=== PATIENT | female | born 1965 | race Two or more races ===

== ENCOUNTER 2021-04-05 21:39 | Emergency (ER) | payer OTHER ==
[2021-04-05 21:55] VITALS: BP 141/81; PULSE 60; TEMP 98.2; BMI 21.7
[2021-04-05 23:03] LABS: ALBUMIN 4.2 g/dl (3.4-5.0); ALK PHOS 76 U/L (45-117); ANION GAP 7 MMOL/L (8-16); BILIRUBIN,TOTAL 0.6 mg/dl (0.2-1); CALCIUM 9.3 mg/dl (8.5-10); CHLORIDE 102 mmol/L (98-107); CO2 29 mmol/L (21-32); CREATININE 0.7 mg/dl (0.55-1.3); GLUCOSE,RANDOM 104 mg/dl (74-106); SGOT/AST 18 U/L (15-37); SGPT/ALT 16 U/L (13-61); SODIUM 138 mmol/L (136-145); TOT PROT 7.1 g/dl (6.4-8.2)
[2021-04-05 23:04] LABS: BASO % 0.3 % (0-2.0); EOS % 1.3 % (0-4.5); HEMATOCRIT 39.3 % (32.4-45.2); LYMPH % 22.4 % (8-40); MCH 30.4 pg (25.7-33.7); MCHC 33.1 g/dl (32.0-36.0); MEAN CELL VOLUME 91.8 fl (80-96); MEAN PLT VOLUME 9.2 fl (7.5-11.1); MONO % 5.2 % (3.8-10.2); NEUT % 70.8 % (42.8-82.8); PLATELET COUNT 224 K/MM3 (134-434); RBC 4.28 M/mm3 (3.60-5.2); RDW 13.9 % (11.6-15.6); WHITE BLOOD COUNT 6.1 K/mm3 (4.0-10.8)
== END 2021-04-06 00:21 | disposition home or self-care (01) ==
LOC: FER 21:39
DX: R07.89 Other chest pain (principal)
CPT/HCPCS: 36415; 80053; 81003; 81015; 82550; 84484; 85025; 87086; 93005; 99284-25

== ENCOUNTER 2023-11-20 11:22 | Emergency (ER) | payer OTHER ==
[2023-11-20 11:32] VITALS: BP 134/74; PULSE 82; RESP 16; TEMP 97.8; BMI 20.9
[2023-11-20] MEDS ORDERED: IBUPROFEN 400 MG TABLET (FP) PO ONE ×2 (11:45→12:06)
== END 2023-11-20 12:17 | disposition home or self-care (01) ==
LOC: FER 11:22
DX: M79.10 Myalgia, unspecified site (principal); R53.83 Other fatigue; R09.81 Nasal congestion; R51.9 Headache, unspecified; B34.9 Viral infection, unspecified; R11.0 Nausea; R05.9 Cough, unspecified; R53.1 Weakness; Z20.822 Contact with and (suspected) exposure to COVID-19
CPT/HCPCS: 0241U-QW; 99283-25